=== PATIENT | female | born 1975 | race Caucasian/White ===

== ENCOUNTER 2017-05-15 06:11 | Inpatient (IN) | payer BC ==
[2017-05-15] VITALS (45 sets, daily range): BP systolic 117–154; BP diastolic 60–90; PULSE 64–102; RESP 16–30; Ht 160 cm; Wt 77.8 kg
[~2017-05-15] VITALS: Ht 160 cm; Wt 77.8 kg
[~2017-05-15 06:11] MED LIST: HEMOSTATIC MATRIX SYG ZFS ONE; THROMBIN 5000 UNIT VIAL ZFS ONE
[2017-05-15] MEDS ORDERED: DEXTROSE 5%-LR 1,000 ML IV SCH (06:34)
[2017-05-15] MEDS ORDERED: CEFAZOLIN 2 GM/50 ML (PMX) 50 ML IVPB ONE (06:34)
[2017-05-15] MEDS ORDERED: THROMBIN 5000 UNIT VIAL ONE (06:38)
[2017-05-15] MEDS ORDERED: BUPIVACAINE 0.25%/EPI (SDV) 30 ML INJ ONE (06:38)
[2017-05-15] MEDS ORDERED: LIDOCAINE 2% (SDV) 5 ML INJ ONE (07:16)
[2017-05-15] MEDS ORDERED: ROCURONIUM 50 MG INJ ONE ×2 (07:16→09:37)
[2017-05-15] MEDS ORDERED: morphine SULFATE/PF (10 MG/10 ML) INJ ONE (07:16)
[2017-05-15] MEDS ORDERED: FENTAnyl 50 MCG/ML VIAL ONE ×2 (07:16→08:41)
[2017-05-15] MEDS ORDERED: PROPOFOL 20 ML ONE (07:16)
--- NOTE | 2017-05-15 07:41 | HPN ---
Date/Time of Note Date/Time of Note DATE: 05/15/17 TIME: 07:41 Interval H&P Admission Note Pt. seen H&P reviewed: No system changes GEORGIANA SHAH MD May 15, 2017 07:41
[2017-05-15] MEDS ORDERED: MIDAZOLAM 1 MG/ML 2 ML INJ ONE (07:53)
[2017-05-15] MEDS ORDERED: DIPHENHYDRAMINE 50 MG INJ IV PRN (08:00)
[2017-05-15] MEDS ORDERED: MEPERIDINE 25 MG INJ IV PRN (08:00)
[2017-05-15] MEDS ORDERED: hydrALAzine 20 MG INJ IV PRN (08:00)
[2017-05-15] MEDS ORDERED: OXYCODONE/ACETAMINOPHEN (5/325) TAB PO PRN ×2 (08:00)
[2017-05-15] MEDS ORDERED: METOCLOPRAMIDE 10 MG INJ IV PRN (08:00)
[2017-05-15] MEDS ORDERED: CEFAZOLIN 1 GM INJ ONE (08:00)
[2017-05-15] MEDS ORDERED: ONDANSETRON 4 MG INJ IV PRN ×2 (08:00→10:30)
[2017-05-15] MEDS ORDERED: EPHEDrine SULFATE 50 MG/5 ML SYG IV PRN (08:00)
[2017-05-15] MEDS ORDERED: FENTAnyl 50 MCG/ML VIAL IV PRN ×2 (08:00)
[2017-05-15] MEDS ORDERED: HYDROmorphONE (0.2 MG/ML) 10ML SYG IV PRN ×2 (08:00)
[2017-05-15] MEDS ORDERED: LABETALOL HCL 20MG INJ IV PRN (08:00)
[2017-05-15] MEDS ORDERED: BUPIVACAINE 0.25%/EPI (SDV) 30 ML INJ INJ ONE (08:19)
--- NOTE | 2017-05-15 08:39 | PREOPHP ---
DATE OF ADMISSION: 05/15/2017 HISTORY OF PRESENT ILLNESS: This is a 41-year-old female 2, para 2 with a history of intractable pelvic pain and bleeding. The patient had seen the PCP due to abnormal bleeding, pelvic pain. She was given Depo shot. She has tried all kinds of control and she has had intolerance to control pills. She has been advised for a vaginal hysterectomy due to pelvic pressure with a pelvic prolapse, grade 3 besides the fact that she has a fibroid uterus that is intractable. She has been depressed, missing job due to this and she was advised for a vaginal hysterectomy since she does not want to have any more children. She has been using the Depo shot to control her bleeding and to control her fertility. PAST MEDICAL HISTORY: The patient's past history otherwise is for a breast biopsy which was benign. ALLERGIES: SHE HAS NO ALLERGIES, NOT ALLERGIC TO ANY MEDICATIONS. FAMILY HISTORY: Hypertension, breast cancer. REVIEW OF SYSTEMS: Negative for all major diseases. She has no history of smoking, drinking or drugs. MEDICATIONS: She is only on the Depo shots. PHYSICAL EXAMINATION: VITAL SIGNS: Vital signs are stable with a blood pressure of 140/90. Pulse is 80, respirations 16. She weighs 180, she is 5 feet, 4 inches. HEENT: The head and neck is normal. BREASTS: Soft, nontender. No masses. LUNGS: Chest clear. CARDIAC: Heart normal sinus rhythm. BACK: Normal. ABDOMEN: Soft, nontender, no masses. GENITOURINARY: Genitalia: Normal external genitalia. Prolapsed uterus that is seen at level 3 prolapse with fibroids that are very painful. Adnexa negative. EXTREMITIES: Normal. IMAGING: The pelvic ultrasound revealed a uterus that is 7.7 cm with a normal endometrium with a subserosal fibroid and both ovaries were normal and a Pap smear was also normal. IMPRESSION: 1. Intractable pelvic pain. 2. Menometrorrhagia. 3. Anemia. 4. Uterine prolapse grade 3. 5. Fibroid uterus. 6. Depression. PLAN: She has been advised for a vaginal total hysterectomy, possible fibroidectomy. She has been advised of the possible risks and possible complications of the procedure with her alternatives and options. Written information was provided. She had no more questions and agreed to go ahead with the procedure with full understanding an no more questions. Dictated By: Mallika Garland MD /marvin/ken /Document#: [id number]
[2017-05-15] MEDS ORDERED: DEXAMETHASONE 4 MG/ML 1 ML INJ ONE (08:42)
[2017-05-15] MEDS ORDERED: ONDANSETRON 4 MG INJ ONE (09:34)
[2017-05-15] MEDS ORDERED: GLYCOPYRROLATE 0.4 MG INJ ONE (09:37)
[2017-05-15] MEDS ORDERED: NEOSTIGMINE 3 MG/3 ML SYRINGE ONE (09:37)
[2017-05-15] MEDS ORDERED: BISACODYL (EC) 5 MG TAB PO PRN (10:00)
[2017-05-15] MEDS ORDERED: HYDROCODONE/APAP (5/325) TAB PO PRN (10:00)
[2017-05-15] MEDS ORDERED: KETOROLAC 30 MG INJ IV PRN (10:00)
[2017-05-15] MEDS ORDERED: ZOLPIDEM 5 MG TAB PO PRN (10:00)
[2017-05-15] MEDS ORDERED: DIPHENHYDRAMINE 50 MG CAP PO PRN (10:00)
[2017-05-15] MEDS ORDERED: HYDROmorphONE 1 MG/ML SYG IV PRN (10:00)
--- NOTE | 2017-05-15 10:09 | OPR ---
Date/Time of Note Date/Time of Note DATE: 05/15/17 TIME: 10:07 Operative Report Procedure Date: May 15, 2017 Preoperative Diagnosis intractable pelvic pain and bleeding fibroid uterus. pelvic prolapse Postoperative Diagnosis same Surgeon: GEORGIANA SHAH MD Laser/Electro Optics Technician: CAESAR BRAN MD Anesthesia: general Estimated Blood Loss: 50 - 100 ml's Specimens uterus bilateral fimbriated end of tubes Complications: None Pt Condition Post Procedure: stable Disposition: PACU GEORGIANA SHAH MD May 15, 2017 10:09
[2017-05-15] MEDS: CEFAZOLIN 2 GM/50 ML (PMX) 50 ML IVPB SCH ×2 (14:31→21:42)
[2017-05-15] MEDS: LACTATED RINGER'S 1,000 ML IV SCH ×2 (14:31→17:46)
[2017-05-15] MEDS: HYDROCODONE/APAP (5/325) TAB PO PRN ×2 (17:48→21:42)
[2017-05-15] MEDS: METOCLOPRAMIDE 10 MG TAB PO SCH (19:17)
[2017-05-16] MEDS: LACTATED RINGER'S 1,000 ML IV SCH (01:36)
[2017-05-16 01:40] VITALS: BP 128/75; PULSE 80; RESP 20
[2017-05-16] MEDS: HYDROCODONE/APAP (5/325) TAB PO PRN ×3 (02:09→13:43)
[2017-05-16] MEDS: METOCLOPRAMIDE 10 MG TAB PO SCH ×5 (06:00→23:45)
[2017-05-16] MEDS: CEFAZOLIN 2 GM/50 ML (PMX) 50 ML IVPB SCH (06:25)
[2017-05-16 07:58] VITALS: BP 140/84; RESP 18
[2017-05-16 08:33] LABS: ADD SCAN DIFF NO
[2017-05-16 08:41] LABS: BASOPHILS % 0.1 % (0.0-2.0); EOSINOPHILS # 0.1 10^3/ul (0.0-0.5); EOSINOPHILS % 0.6 % (0.0-7.0); HEMATOCRIT 33.1 % (37.0-47.0); HEMOGLOBIN 10.5 g/dl (12.0-16.0); LYMPHOCYTES # 1.6 10^3/ul (0.8-2.9); LYMPHOCYTES % 14.1 % (15.0-51.0); MEAN CORPUSCULAR HEMOGLOBIN 27.6 pg (29.0-33.0); MEAN CORPUSCULAR HGB CONC 31.7 g/dl (32.0-37.0); MEAN CORPUSCULAR VOLUME 87.1 fl (82.0-101.0); MEAN PLATELET VOLUME 10.3 fl (7.4-10.4); MONOCYTE # 0.7 10^3/ul (0.3-0.9); MONOCYTES % 6.4 % (0.0-11.0); NEUTROPHIL # 8.8 10^3/ul (1.6-7.5); NEUTROPHILS % 78.4 % (39.0-77.0); PLATELET COUNT 297 10^3/UL (140-415); WHITE BLOOD COUNT 11.2 10^3/ul (4.8-10.8)
[2017-05-16 09:19] LABS: CREATININE 0.63 mg/dl (0.44-1.00); POTASSIUM 3.1 mmol/L (3.5-5.1)
--- NOTE | 2017-05-16 11:15 | PN ---
Date/Time of Note Date/Time of Note DATE: 05/16/17 TIME: 11:12 Assessment/Plan Lines/Catheters IV Catheter Type (from Nrsg): Peripheral IV Hernandez in Place (from Nrsg): Yes Subjective 24 Hr Interval Summary patient is in pain requiring iv medications. not passing gases or voiding yet. i will keep her another day for pain control and monitoring of her bowels Constitutional: BM, ambulates, flatus, improved, no complaints, urine output Feeding: advancing diet Pain Control: moderate Detailed Summary Eyes: no complaints ENT: no complaints Respiratory: no complaints Cardiovascular: no complaints Gastrointestinal: no complaints Genitourinary: no complaints Musculoskeletal: no complaints Skin: no complaints Neurologic: no complaints Endocrine: no complaints Lymphatic: no complaints Psychological: nl mood/affect, no complaints Immunologic: no complaints Exam/Review of Systems Vital Signs Vitals Vital Signs Date Time Temp Pulse Resp B/P Pulse Ox O2 Delivery O2 Flow Rate FiO2 05/16/17 07:58 97.5 65 18 140/84 98 05/16/17 01:40 Room Air 05/15/17 12:31 2.0 Intake and Output 05/15/17 05/15/17 05/16/17 15:00 23:00 07:00 Intake Total 1570 ml 900 ml 950 ml Output Total 400 ml 1000 ml 1000 ml Balance 1170 ml -100 ml -50 ml Exam Constitutional: alert, oriented, well developed Psych: nl mood/affect, no complaints Head: atraumatic, normocephalic Eyes: EOMI, nl conjunctiva, nl lids, nl sclera ENMT: mucosa pink and moist, nl external ears & nose, nl lips & teeth, nl nasal mucosa & septum Neck: non-tender, supple Respiratory: clear to auscultation, normal air movement Cardiovascular: nl pulses, regular rate and rhythm Gastrointestinal: nl liver, spleen, non-tender, soft Musculoskeletal: nl extremities to inspection, nl gait and stance Extremities: normal pulses Neurological: CURRENCY EXAMINER II-XII intact, nl mental status, nl speech, nl strength Skin: nl turgor, rash or lesions Lymph: nl lymph nodes Results Result Diagram: 05/16/17 0815 05/16/17 0815 GEORGIANA SHAH MD May 16, 2017 11:15
[2017-05-16] MEDS: KETOROLAC 30 MG INJ IV SCH ×2 (17:42→22:07)
[2017-05-16 19:20] VITALS: BP 136/82; RESP 18
[2017-05-17] MEDS: KETOROLAC 30 MG INJ IV SCH ×3 (03:43→16:00)
[2017-05-17 05:46] LABS: ADD SCAN DIFF NO
[2017-05-17 05:49] LABS: BASOPHIL # 0.1 10^3/ul (0.0-0.1); BASOPHILS % 0.5 % (0.0-2.0); EOSINOPHILS # 0.3 10^3/ul (0.0-0.5); EOSINOPHILS % 3.5 % (0.0-7.0); HEMATOCRIT 33.3 % (37.0-47.0); HEMOGLOBIN 10.3 g/dl (12.0-16.0); LYMPHOCYTES # 2.2 10^3/ul (0.8-2.9); LYMPHOCYTES % 23.2 % (15.0-51.0); MEAN CORPUSCULAR HGB CONC 30.9 g/dl (32.0-37.0); MEAN CORPUSCULAR VOLUME 87.4 fl (82.0-101.0); MEAN PLATELET VOLUME 10.4 fl (7.4-10.4); MONOCYTE # 0.5 10^3/ul (0.3-0.9); MONOCYTES % 5.3 % (0.0-11.0); NEUTROPHIL # 6.4 10^3/ul (1.6-7.5); NEUTROPHILS % 67.3 % (39.0-77.0); PLATELET COUNT 295 10^3/UL (140-415); RED BLOOD COUNT 3.81 10^6/ul (4.20-5.40); RED CELL DISTRIBUTION WIDTH 13.3 % (11.5-14.5); WHITE BLOOD COUNT 9.5 10^3/ul (4.8-10.8)
[2017-05-17] MEDS: METOCLOPRAMIDE 10 MG TAB PO SCH ×2 (05:56→12:29)
[2017-05-17 07:00] VITALS: BP 128/80; RESP 18
--- NOTE | 2017-05-17 13:58 | PD.PPDC ---
FABRIC CUTTER Discharge Instruction Diagnosis Final Diagnosis: Intractable menometrorrhagia, lfibroid uterus , pelvic pain Condition Patient Condition: Good Diet Diet: Resume Regular Diet Activity/Restrictions Activity: Normal Activity May Shower Restrictions: No Exercising No Lifting No Driving No Sexual Activity Nothing in the Vagina No [place] No Tampons, douche Follow-up Follow-up with Physician: Week/Weeks Return to clinic for SHAKER WASHER Instructions: Fever greater than 101 Chills Worsening abdominal pain Excessive Vaginal Bleeding More than 2 pads per hour Unable to tolerate diet OB Instructions: Breast Tenderness Depression Blurried Vision Headache Surgical Instructions: Incisional Drainage Incisional Redness GEORGIANA SHAH MD May 17, 2017 13:58
--- NOTE | 2017-05-17 14:14 | DS ---
Date/Time of Note Date/Time of Note DATE: 05/17/17 TIME: 14:00 Discharge Summary Admission/Discharge Info Admit Date/Time May 16, 2017 at 11:04 Discharge Date/Time May Discharge Diagnosis Intractable pelvic pain and bleeding Fibroid uterus Pelvic prolapse Patient Condition: Good Procedures vaginal hysterectomy Hx of Present Illness 41 years old , multigravida with history of fibroids and intractable pelvic pain and bleeding This patient had no desire for more children and wanted a complete alleviation of her pain and bleeding. She also had a pelvic prolapse for which reason she was offered a vaginal hysterectomy. Hospital Course The patient underwent a vaginal hysterectomy from which she recovered very well. she had severe pain the first postop day for which she was admitted for iv meds. she went home stable , pain controlled with PO meds and having BM and voiding well, afebrile and ambulatory. she also was tolerating regular diet. she was given instructions hoe w to take care of herself and see me if she had any problem. The laboratory testing was normal. Primary Care Provider Care Physician No Primary Time spent on discharge: < 30 minutes Pending Labs Laboratory Tests Test 05/17/17 05:03 White Blood Count 9.510^3/ul (4.8-10.8) Red Blood Count 3.8110^6/ul (4.20-5.40) Hemoglobin 10.3g/dl (12.0-16.0) Hematocrit 33.3% (37.0-47.0) Mean Corpuscular Volume 87.4fl (82.0-101.0) Mean Corpuscular Hemoglobin 27.0pg (29.0-33.0) Mean Corpuscular Hemoglobin Concent 30.9g/dl (32.0-37.0) Red Cell Distribution Width 13.3% (11.5-14.5) Platelet Count 87366^3/UL (140-415) Mean Platelet Volume 10.4fl (7.4-10.4) Neutrophils % 67.3% (39.0-77.0) Lymphocytes % 23.2% (15.0-51.0) Monocytes % 5.3% (0.0-11.0) Eosinophils % 3.5% (0.0-7.0) Basophils % 0.5% (0.0-2.0) Nucleated Red Blood Cells % 0.0/100WBC (0.0-0.0) Neutrophils # 6.410^3/ul (1.6-7.5) Lymphocytes # 2.210^3/ul (0.8-2.9) Monocytes # 0.510^3/ul (0.3-0.9) Eosinophils # 0.310^3/ul (0.0-0.5) Basophils # 0.110^3/ul (0.0-0.1) Nucleated Red Blood Cells # 0.010^3/ul (0.0-0.0) GEORGIANA SHAH MD May 17, 2017 14:13
[2017-05-17 15:26] LABS: POTASSIUM 3.9 mmol/L (3.5-5.1)
--- NOTE | 2017-05-23 07:18 | OPR ---
DATE OF OPERATION: 05/15/2017 PROCEDURES: 1. Vaginal total hysterectomy. 2. Bilateral fimbriectomy. PREOPERATIVE DIAGNOSES: 1. Intractable pelvic pain and bleeding. 2. Fibroid uterus. 3. Pelvic prolapse. POSTOPERATIVE DIAGNOSES: 1. Intractable pelvic pain and bleeding. 2. Fibroid uterus. 3. Pelvic prolapse. SURGEON: Mallika Garland MD FLEXO PRESS OPERATOR: Dr. Warner. ANESTHESIOLOGIST: Dr. Jeffries. ANESTHESIA: General. PROCEDURE: The patient was given general anesthesia and placed in the lithotomy position. The perineovaginal area was prepped and draped. The cervix was held with a Jose clamp, and a circular incision was made around the cervicovaginal junction. The injection of Xylocaine epinephrine had been given around it. The cardinal ligaments and the uterosacral ligaments were burned with the LigaSure instrument with 3 green bars bipolar instrument. They were cauterized and cut. The anterior cul-de- sac was found and the posterior cul-de-sac was found. Then, the uterine vessels were clamped with the LigaSure instrument again and cauterized and incised. The uterus was inverted, and adnexal pedicles were held with Yamileth clamps, and the uterus was excised. The Yamileth clamp stitches were sutured with number 1 Vicryl with double stitching to the adnexal pedicle. Hemostasis was good. 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 The fimbriated ends of both tubes were removed with the LigaSure, for prevention of ovarian cancer. The procedure was finished by doing a peritonealization with a number 1 Vicryl all around the peritoneal cavity, and the adnexal pedicles were tied to each lateral side. The pedicle was brought up to the anterior 12 o'clock vaginal mucosa. The vagina was closed with interrupted sutures with number 1 Vicryl, and the lifting of the vaginal cuff was observed when the adnexal pedicles were tied up. Hemostasis was good. The patient tolerated the procedure well, and left the OR awake and stable. Sponge counts and instrument counts were correct. Intravenous antibiotics were given for prophylaxis. Blood loss was minimal. The urine was clear at the end of the procedure. A Hernandez catheter was placed after the surgery, to send patient to the room. Dictated By: Mallika Garland MD /fnt/ec /Document#: [id number]
== END 2017-05-17 17:00 | disposition home or self-care (01) | DRG 743 ==
LOC: SDS 06:11 → MS1 13:19 → SDS 05-16 11:03 → MS1 05-16 11:04
PROVIDERS: ADMIT Obstetrics & Gynecology; ATTEND Obstetrics & Gynecology
PROC: 0UTC7ZZ Resection of Cervix, Via Natural or Artificial Opening (ICD-10-PCS; 2017-05-15)
PROC: 0UT77ZZ Resection of Bilateral Fallopian Tubes, Via Natural or Artificial Opening (ICD-10-PCS; 2017-05-15)
PROC: 0UT97ZZ Resection of Uterus, Via Natural or Artificial Opening (ICD-10-PCS; principal; 2017-05-15 07:30)
DX: D25.9 Leiomyoma of uterus, unspecified (principal); F32.9 Major depressive disorder, single episode, unspecified; D64.9 Anemia, unspecified; R58 Hemorrhage, not elsewhere classified; N81.4 Uterovaginal prolapse, unspecified; N92.0 Excessive and frequent menstruation with regular cycle; Z80.9 Family history of malignant neoplasm, unspecified
CPT/HCPCS: 80051; 82565; 84520; 84703; 85025; 86850; 86900; 86901; 86920; 87086; 88309; J0690; J1100; J1170; J1885; J2175; J2250; J2274; J2405; J2710; J3010; J7120; J7121